=== PATIENT | male | born 1985 | race Caucasian/White ===

== ENCOUNTER 2024-11-11 18:12 | Emergency (ER) | payer OTHER, SELFPAY ==
[2024-11-11 18:20] VITALS: BP 135/90; PULSE 114; RESP 18; TEMP 37.2; O2SAT 97
--- NOTE | 2024-11-11 18:29 | ED_ITS ---
HPI - Wound/Laceration General Chief Complaint: Wound/Laceration Stated Complaint: skin issues Time Seen by Provider: 11/11/24 18:29 Source: patient Mode of arrival: ambulatory Limitations: no limitations History of Present Illness HPI narrative: this is a 39-year-old male who presents with some laceration to the left palm of his hand that occurred around 4:00 p.m. after he was using some copper tubing and cut his hand no numbness or tingling in his hand no other injuries noted has good range of motion and movement in his fingers. Onset (ago): hour(s) Extremity Location: Left: hand ( Flap laceration) Place: home Patient tetanus UTD: Yes Context: accidental Associated symptoms: none Related Data Allergies Allergy/AdvReac Type Severity Reaction Status Date / Time Sulfa (Sulfonamide Allergy Mild Unknown Verified 11/11/24 18:31 Antibiotics) Review of Systems Review of Systems: All systems reviewed & are unremarkable except as noted in HPI and below PMFSH Past Medical History Medical History Patient denies medical problems Social History Social History Smoking status: Current every day smoker Additional smoking assessment comments: smokes half pack per day Gender identity (if verbalized by the patient): Male Exam Const: General: healthy appearing and no acute distress Nutritional Appearance: well nourished Orientation/consciousness: patient oriented x3 Limitations: no limitations Resp: Effort & Inspection: normal respiratory effort Auscultation: clear to auscultation bilaterally Cardio: Rate: regular rate Rhythm: regular rhythm GI: GI Palp: Yes Soft to palpation Skin: Wounds: wounds noted Other: flap laceration to the palmar surface of his left hand Neuro: General: patient oriented x3, moves all extremities and no meningeal signs Course Course Emergency Course: flap laceration to the palmar surface of his left hand up-to-date with his tetanus and used Dermabond to the flap laceration site patient tolerated procedure well Procedures Laceration Laceration 1: Date: 11/11/24 Time: 18:31 Site: hand Side (If applicable): left Size (cm): 2 Description: flap Pre-repair: wound explored, irrigated and irrigated extensively ====== Skin Level ====== Skin layer closed with: dermabond ====== Subcutaneous Layer ====== ====== Muscle Layer ====== ====== Tendon Layer ====== Critical Care Time Critical Care Time Critical Care Time: No Discharge Plan Discharge Clinical Impression: Laceration Patient Disposition: Home Condition: Stable Instructions: Antibiotic Form, Laceration (ED), Skin Adhesive Care (ED) Additional Instructions: advised follow-up primary care physician if symptoms persist or worsen. Patient Language: Belarusian Prescriptions: No Action penicillin V potassium 500 mg tablet 500 mg PO Q12H Qty: 20 0RF Follow-up/Referrals: Adalberto Chavez DO [Primary Care Provider] - Time of Disposition: 18:32
== END 2024-11-11 18:43 | disposition home or self-care (01) ==
LOC: CHSED 18:35
PROVIDERS: Emergency Provider Emergency Medicine; Referring Provider Family Medicine
DX: S61.412A Laceration without foreign body of left hand, initial encounter (principal); F17.210 Nicotine dependence, cigarettes, uncomplicated; W26.8XXA Contact with other sharp object(s), not elsewhere classified, initial encounter
CPT/HCPCS: 12001; 99282

== ENCOUNTER 2024-12-01 10:01 | Emergency (ER) | payer OTHER, SELFPAY ==
[2024-12-01] VITALS (33 sets, daily range): BP systolic 124–144; BP diastolic 82–97; PULSE 65–98; RESP 14–18; TEMP 36.5–36.6; O2SAT 99–100
--- NOTE | ~2024-12-01 | XR_ITS ---
XR chest 1V portable Ordering provider: Kirk Anderson MD History: 39 years Male with . 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 Comparison: None. FINDINGS: MEDIASTINUM: The cardiac silhouette is not enlarged. LUNGS: No infiltrates, effusions or pneumothorax. OTHER: No free air under the diaphragm. IMPRESSION: No acute cardiopulmonary pathology. Reviewed, dictated and finalized at location A.
--- NOTE | 2024-12-01 10:10 | ED_ITS ---
HPI - Burn/Smoke Inhalation General Chief complaint: Unspecified Stated complaint: chemical exposure Time Seen by Provider: 12/01/24 10:08 Source: patient Mode of arrival: ambulatory Limitations: no limitations History of Present Illness HPI Narrative: 39-year-old male with no significant past medical history was in the process of extracting metals by dissolving them in sulfuric acid 1hour ago. In the process of doing that he inhaled some of fumes which caused him to have a burning sensation in his nose. He continues to have burning sensation in his nose. The patient denies any cough wheezing or shortness of breath. Onset (ago): hour(s) ( 1 hour ago) Type of Exposure: chemical ( sulfuric acid fumes) Smoke Inhalation: brief Place: home Related Data Home Medications ?Medication ?Instructions ?Recorded ?Confirmed ?Last Taken ?Type No Home Medications 11/11/24 11/11/24 Unknown History Allergies Allergy/AdvReac Type Severity Reaction Status Date / Time Sulfa (Sulfonamide Allergy Mild Unknown Verified 12/01/24 10:11 Antibiotics) Review of Systems Review of Systems: All systems reviewed & are unremarkable except as noted in HPI and below Constitutional: Constitutional: Reports as per HPI and Reports no additional constitutional complaints Eyes: Eyes: Reports as per HPI and Reports no additional eye complaints ENT: Reports system reviewed and no additional complaints, except as doc umented and Reports as per HPI Comments: burning in the nose. Cardiovascular: Cardiovascular: Reports as per HPI and Reports no additional cardiovascular complaints Respiratory: Respiratory: Reports as per HPI and Reports no additional respiratory complaints Gastrointestinal: Gastrointestinal: Reports as per HPI and Reports no additional gastrointestinal complaints Musculoskeletal: Musculoskeletal: Reports no additional musculoskeletal complaints and Reports as per HPI Integumentary/Breasts: Skin/Breast: Reports system reviewed and no additional complaints, except as docu and Reports as per HPI Neurologic: Reports system reviewed and no additional complaints, except as documented and Reports as per HPI Psychiatric: Psychiatric: Reports no additional psychiatric complaints and Rep orts as per HPI Endocrine: Endocrine: Reports no additional endocrine complaints and Reports as per HPI Hematologic/Lymphatic: Hematologic/Lymphatic: Reports no additional hematologic/lymphatic complaints and Reports as per HPI Allergic/Immunologic: Allergic/Immunologic: Reports no additional allergic/immunologic complaints and Reports as per HPI [facility] Past Medical History Medical History Patient denies medical problems Social History Social History Smoking status: Current every day smoker Additional smoking assessment comments: smokes half pack per day Gender identity (if verbalized by the patient): Male Exam Narrative: Oxygen saturation of 99% on room air with a respiratory rate of 18. Const: General: healthy appearing and no acute distress Nutritional Appearance: well nourished Orientation/consciousness: patient oriented x3 HENMT: Head: normal to inspection Ears: external ears normal Face/Nose/Sinus: Normal external nose present and Normal nares present ( Nasal mucosa is unchanged. The nasal hairs are intact without any color ) Face and sinus: normal facial exam Mouth: Yes Normal oral and palatal mucosa present Throat: posterior oropharynx normal Eyes: Conjunctivae: conjunctivae normal Pupils: Equal, round and reactive pupils present EOM: EOMs intact bilaterally Direct Ophthalmoscopy: no photophobia Neck: Neck: normal visual inspection, no lymphadenopathy and no meningeal signs Chest: Chest palpation & inspection: normal inspection of the chest Resp: Effort & Inspection: normal respiratory effort Auscultation: clear to auscultation bilaterally Cardio: Rate: regular rate Rhythm: regular rhythm GI: Auscultation: normal bowel sounds Other: No tenderness/rigidity / rebound : General: Yes no CVA tenderness Back/Spine/Pelvis: Back: no CVA tenderness Skin: General skin exam: normal color Rashes: no rashes Wounds: no wounds Neuro: General: patient oriented x3, moves all extremities, no meningeal signs and no focal motor deficits Cranial nerves: Yes Nystagmus not present Speech: normal speech Gait exam (Neuro): Normal gait present Extrem: General: normal to inspection and no clubbing, cyanosis or edema Psych: Mental Status: mental status grossly normal Affect: normal affect Attitude: cooperative Course Course Emergency Course: inhalation injury with possible exposure to sulfuric acid. Call poison Control who advised humidified oxygen for 4 hours. They also advised monitoring for chest symptoms-- cough, wheezing. tachypnea. patient should return to the ER is the patient has any respiratory symptoms secondary to chemical pneumonitis/ Pulmonary edema Patient was observed in the ER for 4 hours. The patient was on humidified oxygen for 4 hours. Nasal burning has resolved. The patient does not have any cough, sputum production or shortness of breath. No wheezing noted. Advised the patient to return to the ED if he had any cough wheezing or shortness of breath. Vital Signs Vital signs: Vital Signs Temperature 36.5 C 12/01/24 10:01 Pulse Rate 98 12/01/24 10:01 Respiratory Rate 18 12/01/24 10:01 Blood Pressure 144/85 H 12/01/24 10:01 Pulse Oximetry 99 12/01/24 10:01 Oxygen Delivery Room Air 12/01/24 10:01 Temperature 36.6 C 12/01/24 15:01 Pulse Rate 65 12/01/24 15:01 Respiratory Rate 16 12/01/24 15:01 Blood Pressure 139/85 12/01/24 15:01 Pulse Oximetry 100 12/01/24 15:01 Oxygen Delivery Nasal Cannula 12/01/24 12:45 Oxygen Flow Rate 5 12/01/24 12:45 Fraction of Inspired Oxygen 40 12/01/24 10:45 MDM - Burn/Smoke Inhalation MDM Narrative Medical decision making narrative: Inhalation injury Differential Diagnosis Differential diagnosis: Likely smoke inhalation Discharge Plan Discharge Clinical Impression: Inhalation injury Patient Disposition: Home Condition: Stable Instructions: Antibiotic Form, Smoke Inhalation (ED) Patient Language: Occitan Prescriptions: No Action No Home Medications Follow-up/Referrals: Haydee Zamora MD [Physician] - Time of Disposition: 15:05
--- OUTSIDE RECORDS SUMMARY | 2024-12-01 11:04 | XMS_ITS | Clinical Summary ---
Author Organization [facility] Address [facility] [place] [address] Care Team Providers Care Dry Press Operator Helper Name Role Phone Darius Billy MD Primary Care Provider [phone] Allergies Active Allergy Reactions Criticality Noted Date Comments Sulfa Antibiotics Unknown 08/14/2021 Pt states reaction happened when he was a child, he does not know reaction. Medications clonazePAM 0.5 MG tablet Take 0.5 mg by mouth as needed for Anxiety. Active traMADol 50 MG tabletIndication s:Acute Pain < 7 Day Supply Indications : Acute Pain < 7 Day Supply 1-2 every 6 hours as needed for pain 20 tablet 08/14/2021 Active Family History Medical History Relation Comments No Known Problems Father No Known Problems Mother Relation Status Comments Father Alive Mother Alive Social History Tobacco Use Types Packs/Day Years Used Date Smoking Tobacco: Every Day Smokeless Tobacco: Former Alcohol Use Standard Drinks/Week Comments Not Currently 0 (1 standard drink = 0.6 oz pur e alcohol) AUDIT-C Answer Date Recorded Frequency of Alcohol Consumption Never 03/05/2019 Average Number of Drinks Not on file 019 Frequency of Binge Drinking Not on file 02/16 Sex and Gender Information Value Date Recorded Sex Assigned at Not on file 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 Gender Identity Not on file Sexual Orientation Not on file Last Filed Vital Signs Vital Sign Reading Time Taken Comments Blood Pressure 117/78 08/14/2021 3:13 AM CDT Pulse 87 08/14/2021 3:13 AM CDT Temperature 37.1 C (98.7 F) 08/14/2021 3:13 AM CDT Respiratory Rate 16 08/14/2021 3:13 AM CDT Oxygen Saturation 99% 08/14/2021 3:13 AM CDT Inhaled Oxygen Concentration - - Weight 83.9 kg (185 lb) 08/14/2021 3:13 AM CDT Height 177.8 cm (5' 10) 08/14/2021 3:13 AM CDT Body Mass Index 26.54 08/14/2021 3:13 AM CDT Plan of Treatment Health Maintenance Due Date Last Done Comments Annual Physical 1986 Hepatitis C 2001 DTaP, Tdap and Td Vaccines ( 1 - Tdap) 2002 Hepatitis B Vaccines (1 of 3 - 19+ 3-dose series) 2002 Pneumococcal Vaccine: Pediat rics (0 to 5 Years) and At-Risk Patients (6 to 49 Years) (1 of 2 - PCV) 2002 COVID-19 Vaccine (2023-2 5 season) 2024 HPV Vaccines Aged Out No longer eligi ble based on patient's age to complete this topic Meningococcal B Vaccine Aged Out No l onger eligible based on patient's age to complete this topic Meningococcal Vaccine Aged Out No luis nesha eligible based on patient's age to complete this topic RSV Immunizations Under 20 Months Aged Out No longer eligible based on patient's age to complete this topic Insurance VILLA Care Teams Dry Press Operator Helper Relationship Specialty Start Date End Date Darius Billy MD [address] [place] [address] PCP - General FAMILY PRACTICE 08/14/21
--- OUTSIDE RECORDS SUMMARY | 2024-12-01 11:04 | XMS_ITS | Encounter Summary ---
Author Organization 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
== END 2024-12-01 15:10 | disposition home or self-care (01) ==
PROVIDERS: Emergency Provider Internal Medicine Critical Care Medicine; Referring Provider Internal Medicine
DX: T54.2X1A Toxic effect of corrosive acids and acid-like substances, accidental (unintentional), initial encounter (principal); F17.210 Nicotine dependence, cigarettes, uncomplicated
CPT/HCPCS: 71045; 99283

== ENCOUNTER 2024-12-04 21:35 | Emergency (ER) | payer OTHER, SELFPAY ==
--- NOTE | ~2024-12-04 | CT_ITS ---
CT of the Abdomen and Pelvis: Indication: Abdominal pain Technique: 2.5 mm axial scans were obtained through the abdomen and pelvis following intravenous adm inistration of 100 cc of Omnipaque 350. Dose reduction technique was used on this scan by utilizing a utomated exposure control and iterative reconstruction technique. The dose-length product (DLP) was 6 03.91 mGy-cm. Findings: Scans through the lung bases are unremarkable. The liver, spleen, pancreas, gallbladder, adrenals and right kidney are within normal limits. 4 mm no nobstructing left renal stone present. There is a 4-5 mm stone at left UVJ, with mild left hydronephr osis. No evidence of aortic aneurysm. No lymphadenopathy. No bowel obstruction or bowel wall thickening. There is no evidence to suggest acute appendicitis. Images through the pelvis were performed. Urinary bladder otherwise unremarkable. No pelvic mass seen . No ascites. Impression: 4-5 mm left UVJ stone with mild left hydronephrosis. Additional 4 mm nonobstructing left renal stone. Reviewed, dictated and finalized at [facility]. Impression: 4-5 mm left UVJ stone with mild left hydronephrosis. Additional 4 mm nonobstructing left renal stone.
--- OUTSIDE RECORDS SUMMARY | 2024-12-04 21:37 | XMS_ITS | Clinical Summary ---
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
--- OUTSIDE RECORDS SUMMARY | 2024-12-04 21:37 | XMS_ITS | Encounter Summary ---
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
[2024-12-04 21:39] VITALS: BP 120/76; PULSE 77; RESP 26; TEMP 36.2; O2SAT 100
--- NOTE | 2024-12-04 21:45 | ED_ITS ---
HPI - Abdominal Pain General Chief Complaint: Abdominal Pain Stated Complaint: abd pain Time Seen by Provider: 12/04/24 21:41 Source: patient Mode of arrival: ambulatory Limitations: no limitations History of Present Illness HPI narrative: 39 year old male presents to the Emergency Department complaining of abdominal pain. Onset an hour ago. Patient writhing around on stretcher. Poor historian. No vomiting, diarrhea, constipation or urinary tract symptoms voiced. MD elicited complaint: abdominal pain Onset (ago): hour(s) (1) Pain Consistency: constant Location: LLQ Severity: severe Related Data Home Medications ?Medication ?Instructions ?Recorded ?Confirmed ?Last Taken ?Type No Home Medications 11/11/24 11/11/24 Unknown History Allergies Allergy/AdvReac Type Severity Reaction Status Date / Time Sulfa (Sulfonamide Allergy Mild Unknown Verified 12/01/24 10:11 Antibiotics) Review of Systems 2 Review of Systems: All systems reviewed & are unremarkable except as noted in HPI and below Constitutional: Constitutional: Reports as per HPI, Denies chills and Denies fever(s) Eyes: Eyes: Reports as per HPI ENT: Reports system reviewed and no additional complaints, except as documented Cardiovascular: Cardiovascular: Reports as per HPI and Denies chest pain Respiratory: Respiratory: Reports as per HPI, Denies chest congestion, Denies cough and Denies dyspnea Gastrointestinal: Gastrointestinal: Reports as per HPI, Reports abdominal pain, Denies constipation, Denies diarrhea, Denies nausea and Denies vomiting Genitourinary: Genitourinary: Reports no additional male genitourinary complaints Musculoskeletal: Musculoskeletal: Reports no additional musculoskeletal complaints Integumentary/Breasts: Skin/Breast: Reports system reviewed and no additional complaints, except as docu Neurologic: Reports system reviewed and no additional complaints, except as documented Psychiatric: Psychiatric: Reports no additional psychiatric complaints Endocrine: Endocrine: Reports no additional endocrine complaints Hematologic/Lymphatic: Hematologic/Lymphatic: Reports no additional hematologic/lymphatic complaints Allergic/Immunologic: Allergic/Immunologic: Reports no additional allergic/immunologic complaints PMFSH Past Medical History Medical History Patient denies medical problems Social History Social History Smoking status: Current every day smoker Additional smoking assessment comments: smokes half pack per day Gender identity (if verbalized by the patient): Male Exam 2 Const: Nutritional Appearance: well nourished Orientation/consciousness: p atient oriented x3 Limitations: other limitations (poor historian due to writhing around on stretcher c/o pain) Other: moderate distress HENMT: Head: normal to inspection Ears: external ears normal F yadiel/Nose/Sinus: Normal external nose present Face and sinus: normal facial exam Mouth: Yes Normal oral and palatal mucosa present Eyes: Pupils: Equal, round and reactive pupils present EOM: EOMs intact bilaterally Direct Ophthalmoscopy: no photophobia Neck: Neck: normal visual inspection Chest: Chest palpation & inspection: normal inspection of the chest Resp: Effort & Inspection: normal respiratory effort Auscultation: clear to auscultation bilaterally and diminished lung sounds Cardio: Rate: regular rate Rhythm: regular rhythm Heart sounds: no murmurs GI: Inspection: non-distended GI Palp: Yes Soft to palpation and Yes Tenderness to palpation present (GI) (L>R lower) : General: Yes bladder normal to palpation Skin: General skin exam: normal color Rashes: no rashes Wounds: no wounds Neuro: General: patient oriented x3, moves all extremities and no meningeal signs Other: grossly intact Extrem: General: normal to inspection and no clubbing, cyanosis or edema Psych: Other: anxious Course Vital Signs Vital signs: Vital Signs Temperature 36.2 C L 12/04/24 21:39 Pulse Rate 77 12/04/24 21:39 Respiratory Rate 26 H 12/04/24 21:39 Blood Pressure 120/76 12/04/24 21:39 Pulse Oximetry 100 12/04/24 21:39 Oxygen Delivery Room Air 12/04/24 21:39 Temperature 36.2 C L 12/04/24 21:39 Pulse Rate 77 12/04/24 21:39 Respiratory Rate 26 H 12/04/24 21:39 Blood Pressure 120/76 12/04/24 21:39 Pulse Oximetry 100 12/04/24 21:39 Oxygen Delivery Room Air 12/04/24 21:39 MDM - Abdominal Pain MDM Narrative Medical decision making narrative: 39 y/o male presents to the ED c/o abdominal pain. Onset an hour ago. Pain to lower abdomen. Denies N/V/D/C/ symptoms. Patient is poor historian. PE: moderate distress, tender L>R lower abdomen, decreased BS CBC: H/H 13.7/40.2, Plt 282; wbc 7 with 34 S, 48 L, 10 M CMP: Na 137, K 3.6, Cl 108, CO2 20, Glc 152, BUN 18, Cr 0.9; LFT's normal A/L: 54 /23 Lactic: 1.8 UA: UDS: CT Abd/Pelvis: 3.3 mm distal L ureteral stone at UVJ. Mild hydronephrosis. Tx: NS w/o, Toradol 30 mg IVP. Dilaudid 1 mg IVP. NS w/o. Rx and Instructions Lab Data 12/04/24 21:56 12/04/24 21:56 Labs: Lab Results 12/04/24 Range/Units 21:56 WBC 7.0 (4.8-10.8) K/mm3 RBC 4.67 L (4.70-6.10) M/mm3 Hgb 13.7 L (14.0-18.0) g/dL Hct 40.2 (40.0-54.0) % MCV 86.1 (78.0-102.0) fL MCH 29.3 (27.0-31.0) pg MCHC 34.1 (32-36) g/dL RDW 11.9 (11.6-14.4) % Plt Count 282 (150-420) K/mm3 MPV 9.6 (8.7-11.0) fl Immature Gran % (Auto) 0.3 H (0.0-0.0) % Neut % (Auto) 34.5 L (50.0-70.0) % Lymph % (Auto) 47.9 H (18.0-42.0) % Porter % (Auto) 10.5 (2.0-11.0) % Eos % (Auto) 5.7 (1.0-6.0) % Baso % (Auto) 1.1 H (0.0-1.0) % Lymph # (Auto) 3.34 (1.10-4.50) K/mm3 Porter # (Auto) 0.73 (0.10-0.90) K/mm3 Eos # (Auto) 0.40 (0.02-0.50) K/mm3 Baso # (Auto) 0.08 (0.00-0.10) K/mm3 Abs Immat Gran (auto) 0.02 H (0.00-0.00) K/mm3 Absolute Neuts (auto) 2.40 (1.70-7.20) K/mm3 Absolute Nucleated RBC 0.00 (0.00-0.00) K/mm3 Nucleated RBC % 0.0 (0-0.0) % Sodium 137 (137-145) mmol/L Potassium 3.6 (3.4-5.0) mmol/L Chloride 108 H (98-107) mmol/L Carbon Dioxide 20 L (22-30) mmol/L Anion Gap 9 (4-12) mmol/L BUN 18 (9-20) mg/dL Creatinine 0.90 (0.7-1.3) mg/dL Estim Creat Clear Calc 98 ml/min Estimated GFR > 60 (59 - ) Glucose 152 H (65-110) mg/dL Calculated Osmolality 288 (285-295) mOsm/kg Lactic Acid 1.8 (0.4-2.0) mmol/L Calcium 9.0 (8.4-10.2) mg/dL Total Bilirubin 0.5 (0.2-1.3) mg/dL AST 27 (17-59) U/L ALT 30 (6-50) U/L Alkaline Phosphatase 77 (38-126) U/L Total Protein 7.3 (6.3-8.2) g/dL Albumin 4.2 (3.5-5.1) g/dL Amylase 54 (30-110) U/L Lipase 23 (23-300) U/L Discharge Plan Discharge Clinical Impression: Ureterolithiasis, Renal colic on left side Patient Disposition: Home Condition: Stable Instructions: Antibiotic Form, Kidney Stones (ED) Additional Instructions: Push fluids Strain urine Take medications as prescribed Follow up Primary Care Physician this week Return as needed Patient Language: Mongolian Prescriptions: New tamsulosin [Flomax] 0.4 mg capsule 0.4 mg PO HS Qty: 7 0RF hydrocodone-acetaminophen 10-325 mg tablet 1 tablet PO Q4H PRN (Reason: pain) Qty: 20 0RF cephalexin 500 mg capsule 500 mg PO Q8H Qty: 15 0RF No Action No Home Medications Follow-up/Referrals: Haydee Zamora MD [Primary Care Provider] - Time of Disposition: 03:19
[2024-12-04] MEDS: SODIUM CHLORIDE 0.9% IV 1,000 ML 999 ML IV CONT (21:55)
[2024-12-04] MEDS: KETOROLAC 30 MG/ML VIAL (*BKC) IV PUSH (21:55)
[2024-12-04 22:00] LABS: Hematocrit 40.2 % (40.0-54.0); Hemoglobin 13.7 g/dL (14.0-18.0); Immature Granulocyte Percent A 0.3 % (0.0-0.0); Lymphocytes Absolute Auto 3.34 K/mm3 (1.10-4.50); Mean Corpuscular HGB Conc 34.1 g/dL (32-36); Mean Corpuscular Hemoglobin 29.3 pg (27.0-31.0); Mean Corpuscular Volume 86.1 fL (78.0-102.0); Nucleated Red Blood Cells Absolute Auto 0.00 K/mm3 (0.00-0.00); Nucleated Red Blood Cells Perc 0.0 % (0-0.0); Platelet Count Result 282 K/mm3 (150-420); Red Blood Count 4.67 M/mm3 (4.70-6.10); White Blood Count 7.0 K/mm3 (4.8-10.8)
[2024-12-04 22:08] LABS: Alanine Aminotransferase 30 U/L (6-50); Albumin Level 4.2 g/dL (3.5-5.1); Alkaline Phosphatase 77 U/L (38-126); Amylase 54 U/L (30-110); Anion Gap 9 mmol/L (4-12); Aspartate Amino Transferase 27 U/L (17-59); Bilirubin,Total 0.5 mg/dL (0.2-1.3); Blood Urea Nitrogen 18 mg/dL (9-20); Calcium 9.0 mg/dL (8.4-10.2); Carbon Dioxide 20 mmol/L (22-30); Chloride 108 mmol/L (98-107); Estimated CRCL calculation 98 ml/min; Estimated Glomerular Filt Rate > 60; Glucose 152 mg/dL (65-110); Lipase 23 U/L (23-300); Osmolality Calculated 288 mOsm/kg (285-295); Potassium 3.6 mmol/L (3.4-5.0); Sodium 137 mmol/L (137-145); Total Protein 7.3 g/dL (6.3-8.2)
--- OUTSIDE RECORDS SUMMARY | 2024-12-04 22:43 | XMS_ITS | Clinical Summary ---
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
--- OUTSIDE RECORDS SUMMARY | 2024-12-04 22:43 | XMS_ITS | Encounter Summary ---
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
[2024-12-04] MEDS: ONDANSETRON INJ 4 MG/2 ML VIAL IV PUSH (22:45)
[2024-12-04] MEDS: HYDROmorphone HCL INJ (*CRX) 2 MG/ML VIAL 1 MG IV PUSH (23:17)
[2024-12-05] MEDS: SODIUM CHLORIDE 0.9% IV 1,000 ML 999 ML IV CONT ×3 (00:12→02:57)
[2024-12-05] MEDS: TAMSULOSIN HCL 0.4 MG CAPSULE PO (01:03)
[2024-12-05 03:01] VITALS: BP 110/69; O2SAT 91
== END 2024-12-05 03:49 | disposition home or self-care (01) ==
PROVIDERS: Emergency Provider Emergency Medicine; PCP Internal Medicine
DX: N20.1 Calculus of ureter (principal); N23 Unspecified renal colic; F17.210 Nicotine dependence, cigarettes, uncomplicated
CPT/HCPCS: 36415; 74177; 80053; 82150; 83605; 83690; 85025; 96361; 96374; 96375; 99284; A9270; J1171; J1885; J2405; J7030; Q9967